=== PATIENT | female | born 1960 | race Caucasian/White ===

== ENCOUNTER 2024-04-21 17:03 | Emergency (ER) | payer OTHER ==
[2024-04-21 17:20] VITALS: BMI 26.5
[2024-04-21] MEDS: ONDANSETRON 4 MG/2 ML VIAL IVPUSH ONE (17:30)
[2024-04-21] MEDS ORDERED: ACETAMINOPHEN INJECTION 100 ML ONE (17:34)
[2024-04-21] MEDS ORDERED: ONDANSETRON 4 MG/2 ML VIAL ONE (17:34)
[2024-04-21] MEDS: SODIUM CHLORIDE 0.9% 1000 ML INFUS.BAG IV ONE (17:42)
[2024-04-21] MEDS: ACETAMINOPHEN 1000 MG/100 ML BAG IVPB ONE (17:42)
[2024-04-21 17:55] LABS: HEMATOCRIT 45.1 % (32.4-45.2); HEMOGLOBIN 14.4 G/dL (10.7-15.3); MCH 28.8 pg (25.7-33.7); MCHC 31.9 g/dl (32.0-36.0); MEAN CELL VOLUME 90.4 fl (80-96); MEAN PLT VOLUME 9.9 fl (7.5-11.1); PLATELET COUNT 229.5 10^3/uL (134-434); RBC 4.99 10^6/uL (3.60-5.2); RDW 14.1 % (11.6-15.6); WHITE BLOOD COUNT 14.4 10^3/uL (4.0-10.8)
[2024-04-21 17:59] LABS: INR 1.09 (0.83-1.09); PROTHROMBIN TIME (PATIENT) 12.4 SEC (9.7-13.0)
[2024-04-21] MEDS ORDERED: FAMOTIDINE 20 MG/50 ML IVPB 20 MG/50 ML MG IVPB ONE (18:02)
[2024-04-21 18:03] LABS: ALBUMIN 3.9 g/dl (3.4-5.0); BILIRUBIN,TOTAL 1.9 mg/dl (0.2-1); CALCIUM 9.6 mg/dl (8.5-10.1); CREATININE 0.8 mg/dl (0.6-1.3); POTASSIUM 3.8 mmol/L (3.5-5.1); TOT PROT 6.9 g/dl (6.4-8.2)
[2024-04-21 18:12] LABS: PLATELET ESTIMATE ADEQUATE
[2024-04-21] MEDS: FAMOTIDINE 20 MG/50 ML IVPB 20 MG/50 ML MG IVPB ONE (18:12)
[2024-04-21] MEDS ORDERED: PIPERACILLIN/TAZOBACTAM 4.5 GM VIAL IVPB ONE (18:35)
[2024-04-21] MEDS: PIPERACILLIN/TAZOB 4.5 GM 4.5 GM in DEXTROSE 5%-WATER 100 ML IVPB ONE (18:39)
[2024-04-22 01:04] VITALS: BP 100/59; PULSE 88; RESP 18; TEMP 97.6
[2024-04-22] MEDS: morphine CARPU-JECT 4 MG/1 ML DISP.SYRIN IVPUSH ONE (01:33)
[2024-04-22] MEDS ORDERED: SODIUM CHLORIDE 1,000 ML IV STA (02:12)
== END 2024-04-22 03:00 | disposition short-term general hospital (02) ==
LOC: FER 17:03
PROC: 3E033GC Introduction of Other Therapeutic Substance into Peripheral Vein, Percutaneous Approach (ICD-10-PCS; principal; 2024-04-21)
PROC: 3E03329 Introduction of Other Anti-infective into Peripheral Vein, Percutaneous Approach (ICD-10-PCS; 2024-04-21)
PROC: 3E033NZ Introduction of Analgesics, Hypnotics, Sedatives into Peripheral Vein, Percutaneous Approach (ICD-10-PCS; 2024-04-21)
PROC: 3E033GC Introduction of Other Therapeutic Substance into Peripheral Vein, Percutaneous Approach (ICD-10-PCS; 2024-04-21)
PROC: 3E033NZ Introduction of Analgesics, Hypnotics, Sedatives into Peripheral Vein, Percutaneous Approach (ICD-10-PCS; 2024-04-22)
DX: R07.89 Other chest pain (principal); R06.02 Shortness of breath; R11.2 Nausea with vomiting, unspecified; K81.0 Acute cholecystitis; R10.11 Right upper quadrant pain; R10.13 Epigastric pain; Z20.822 Contact with and (suspected) exposure to COVID-19
CPT/HCPCS: 0241U-QW; 36415; 71045-TC-FY; 76705-TC; 80053; 82962; 84484; 85027; 85610; 86850; 86900; 86901; 99285-25; J0131